=== PATIENT | female | born 1960 | race African-American/Black ===

== ENCOUNTER 2021-02-11 23:37 | Inpatient (IN) | payer BC, OTHER ==
[~2021-02-11] VITALS: Ht 167.6 cm; Wt 85.7 kg
[2021-02-11] MEDS ORDERED: ACETAMINOPHEN 325MG TABLET PO STA (23:53)
[2021-02-12 00:46] LABS: BASOPHILS % 0.4 % (0.0-2.0); HEMATOCRIT. 36.6 % (36.0-48.0); HEMOGLOBIN. 12.3 g/dL (12.0-16.0); LYMPHOCYTES % 11.1 % (20.0-50.0); MEAN CORPUSCULAR HEMOGLOBIN 28.9 pg (28.0-32.0); MEAN CORPUSCULAR VOLUME 85.8 fL (81.0-99.0); MEAN PLATELET VOLUME 7.7 fl (7.4-10.4); MONOCYTES % 8.6 % (2.0-8.0); NEUTROPHILS % 79.9 % (40.0-76.0); PLATELET 283 x1000/uL (130-400); RED BLOOD CELL COUNT 4.27 mill/uL (4.2-5.4); RED CELL DISTRIBUTION WIDTH 13.6 % (11.6-14.6)
[2021-02-12 00:52] LABS: CHLORIDE 103 mEq/L (98-107)
[2021-02-12 00:57] LABS: ETHANOL BLOOD < 10 mg/dL
[2021-02-12] MEDS ORDERED: DOBUTAMINE 500MG PREMIX 250 ML IV STA ×2 (01:06→02:09)
[2021-02-12] MEDS ORDERED: SODIUM CHLORIDE 0.9% 250 ML IV ONE (01:15)
[2021-02-12] MEDS ORDERED: ASPIRIN 325MG EC TABLET PO NR (01:15)
[2021-02-12 01:38] LABS: D-DIMER 0.82 mg/L FEU (<0.50); INR 1.1; PROTHROMBIN TIME 11.8 sec (9.6-11.0)
[2021-02-12] MEDS ORDERED: DEXAMETHASONE 10 MG/ML VIAL IV ONE (02:00)
[2021-02-12] MEDS ORDERED: SODIUM CHLORIDE 0.9% 500 ML IV ONE (02:30)
[2021-02-12] MEDS ORDERED: IOHEXOL-350 100 ML BOTTLE ONE (02:34)
[2021-02-12] MEDS ORDERED: DOBUTAMINE 500MG PREMIX 250 ML IV SCH (08:30)
[2021-02-12] MEDS ORDERED: NOREPINEPHRINE 8MG/250ML PMX 250 ML IV PRN (09:15)
[2021-02-12] MEDS: NOREPINEPHRINE 8MG/250ML PMX 250 ML IV PRN (09:23)
[2021-02-12] MEDS ORDERED: ONDANSETRON HCL 4MG/2ML INJ IV PRN (10:30)
[2021-02-12] MEDS ORDERED: VANCOMYCIN 1 G PREMIX 200 ML IV SCH (10:30)
[2021-02-12 10:56] LABS: BG CARBOXYHEMOGLOBIN 0.5 % (0.5-1.5); BG DEOXYHEMOGLOBIN 6.1 % (0.0-5.0); BG HCO3 ACT 20.6 mmol/L (22.0-26.0); BG OXYGEN SATURATION 93.9 % (92.0-98.5); BG OXYHEMOGLOBIN 93.4 % (94.0-97.0); BG PCO2 40.6 mmHg (35.0-45.0); BG PH 7.324 (7.350-7.450); BG PO2 77.5 mmHg (75.0-100.0); BG SAMPLE SITE RIGHT RADIAL; BG TOTAL HEMOGLOBIN 13.1 g/dL (12.0-18.0); BG VENT MODE NASAL CANNULA
[2021-02-12] MEDS: PANTOPRAZOLE SODIUM 40 MG/VIAL IV SCH (11:42)
[2021-02-12] MEDS: PIPERACILLIN/TAZ 3.375G PREMIX 50 ML IV SCH ×3 (11:42→21:56)
[2021-02-12] MEDS: ASCORBIC ACID 500 MG TABLET PO SCH ×2 (11:42→21:56)
[2021-02-12] MEDS: DEXAMETHASONE 10 MG/ML VIAL IV SCH (11:43)
[2021-02-12] MEDS: ENOXAPARIN 100MG/ML SYR SUBCUT SCH ×2 (11:43→22:58)
[2021-02-12] MEDS: FUROSEMIDE 20MG/2ML VIAL IVP NR ×2 (11:43→14:28)
[2021-02-12] MEDS: ZINC SULFATE 220 MG ( 50 ) CAPSULE PO SCH (11:58)
[2021-02-12] MEDS ORDERED: PHENYLEPHRINE 50 MG in DEXT 5% WATER 245 ML IV PRN (12:30)
[2021-02-12] MEDS ORDERED: DEXTROSE 50% WATER 50ML SYRINGE IV PRN (15:00)
[2021-02-12] MEDS ORDERED: GABAPENTIN 100MG CAPSULE PO PRN (15:30)
[2021-02-12] MEDS: BLOOD SUGAR DIAGNOSTIC STRIP TEST SCH ×2 (17:17→21:50)
[2021-02-12] MEDS: INSULIN LISPRO 100 UNITS/ML SUBCUT SCH ×2 (17:52→21:00)
[2021-02-12 18:09] LABS: BASOPHILS % 0.3 % (0.0-2.0); HEMATOCRIT. 34.9 % (36.0-48.0); HEMOGLOBIN. 11.8 g/dL (12.0-16.0); LYMPHOCYTES % 11.6 % (20.0-50.0); MEAN CORPUSCULAR HEMOGLOBIN 29.2 pg (28.0-32.0); MEAN CORPUSCULAR VOLUME 86.2 fL (81.0-99.0); MONOCYTES % 7.4 % (2.0-8.0); NEUTROPHILS % 80.7 % (40.0-76.0); PLATELET 298 x1000/uL (130-400); RED BLOOD CELL COUNT 4.05 mill/uL (4.2-5.4); RED CELL DISTRIBUTION WIDTH 13.8 % (11.6-14.6)
[2021-02-12 18:12] LABS: CHLORIDE 102 mEq/L (98-107)
[2021-02-12 18:21] LABS: LDL CHOLESTEROL 106 mg/dL (5-100)
[2021-02-12 18:23] LABS: HDL CHOLESTEROL 36 mg/dL (40-59)
[2021-02-12 18:26] LABS: CREATINE KINASE MB FRACTION 10.9 ng/mL (0.5-3.6)
[2021-02-13] MEDS ORDERED: VANCOMYCIN 1 G PREMIX 200 ML IV SCH
[2021-02-13] MEDS: PIPERACILLIN/TAZ 3.375G PREMIX 50 ML IV SCH ×3 (06:37→22:48)
[2021-02-13] MEDS: BLOOD SUGAR DIAGNOSTIC STRIP TEST SCH ×4 (06:38→21:00)
[2021-02-13 07:13] LABS: HEMATOCRIT. 34.4 % (36.0-48.0); HEMOGLOBIN. 11.8 g/dL (12.0-16.0); MEAN CORPUSCULAR HEMOGLOBIN 29.4 pg (28.0-32.0); MEAN CORPUSCULAR VOLUME 85.5 fL (81.0-99.0); MEAN PLATELET VOLUME 7.7 fl (7.4-10.4); PLATELET 395 x1000/uL (130-400); RED BLOOD CELL COUNT 4.02 mill/uL (4.2-5.4); RED CELL DISTRIBUTION WIDTH 13.9 % (11.6-14.6)
[2021-02-13 07:14] LABS: CHLORIDE 103 mEq/L (98-107)
[2021-02-13 07:20] LABS: PHOSPHORUS 3.2 mg/dL (2.5-4.9)
[2021-02-13] MEDS: PANTOPRAZOLE SODIUM 40 MG/VIAL IV SCH (08:08)
[2021-02-13] MEDS: ZINC SULFATE 220 MG ( 50 ) CAPSULE PO SCH (08:10)
[2021-02-13] MEDS: ASPIRIN 81MG EC TABLET PO SCH (08:10)
[2021-02-13] MEDS: DEXAMETHASONE 10 MG/ML VIAL IV SCH (08:10)
[2021-02-13] MEDS: ASCORBIC ACID 500 MG TABLET PO SCH ×2 (08:10→22:48)
[2021-02-13] MEDS: ENOXAPARIN 100MG/ML SYR SUBCUT SCH ×2 (08:11→22:51)
[2021-02-13] MEDS: INSULIN LISPRO 100 UNITS/ML SUBCUT SCH ×4 (08:12→22:50)
[2021-02-13] MEDS ORDERED: MAGNESIUM 1 G PREMIX 100 ML IV SCH (09:00)
[2021-02-13] MEDS: FUROSEMIDE 20MG/2ML VIAL IVP SCH (09:12)
[2021-02-13 10:13] LABS: PLATELET ESTIMATE NORMAL
[2021-02-13] MEDS: VANCOMYCIN 750 MG PREMIX 150 ML IV SCH (19:04)
[2021-02-13] MEDS: ACETAMINOPHEN 325MG TABLET PO PRN (22:49)
[2021-02-14] VITALS (47 sets, daily range): BP systolic 81–138; BP diastolic 42–87
[2021-02-14] MEDS: NOREPINEPHRINE 8MG/250ML PMX 250 ML IV PRN (00:04)
[2021-02-14] MEDS ORDERED: CLOP-31 MT (01:53)
[2021-02-14] MEDS ORDERED: INSU100I28 SQ (01:53)
[2021-02-14] MEDS ORDERED: ALBU2.5V13 NEB (01:53)
[2021-02-14] MEDS ORDERED: FURO-151 MT (01:53)
[2021-02-14] MEDS ORDERED: METF-416 MT (01:53)
[2021-02-14] MEDS: INSULIN LISPRO 100 UNITS/ML SUBCUT SCH ×4 (05:57→20:36)
[2021-02-14] MEDS: PIPERACILLIN/TAZOBACTAM 3.375G in DEXT 5% WATER 50ML IV SCH ×3 (05:58→21:51)
[2021-02-14] MEDS: BLOOD SUGAR DIAGNOSTIC STRIP TEST SCH ×4 (05:58→21:06)
[2021-02-14] MEDS: ZINC SULFATE 220 MG ( 50 ) CAPSULE PO SCH (08:41)
[2021-02-14] MEDS: FUROSEMIDE 20MG/2ML VIAL IVP SCH (08:41)
[2021-02-14] MEDS: ASPIRIN 81MG EC TABLET PO SCH (08:41)
[2021-02-14] MEDS: PANTOPRAZOLE SODIUM 40 MG/VIAL IV SCH (08:41)
[2021-02-14] MEDS: ASCORBIC ACID 500 MG TABLET PO SCH ×2 (08:41→20:33)
[2021-02-14] MEDS: ENOXAPARIN 100MG/ML SYR SUBCUT SCH ×2 (08:42→20:35)
[2021-02-14] MEDS: DEXAMETHASONE 10 MG/ML VIAL IV SCH (08:42)
[2021-02-14] MEDS: VANCOMYCIN 750 MG PREMIX 150 ML IV SCH (12:54)
[2021-02-14] MEDS ORDERED: ALBUTEROL (0.083%) 2.5MG/3ML NEB HHN PRN (15:30)
[2021-02-14] MEDS ORDERED: ALBUTEROL 6.7GM HFA INHALER ORI PRN (16:30)
[2021-02-14] MEDS: ACETAMINOPHEN 325MG TABLET PO PRN (20:33)
[2021-02-14] MEDS ORDERED: *PATIENT'S OWN MEDICATION STORAGE XX SCH (22:00)
[2021-02-14] MEDS ORDERED: MOME13HF INH (22:34)
[2021-02-15] VITALS: BP 101/58
[2021-02-15 04:00] VITALS: BP 112/62
[2021-02-15] MEDS: VANCOMYCIN 750 MG PREMIX 150 ML IV SCH ×2 (05:05→23:45)
[2021-02-15] MEDS: PIPERACILLIN/TAZOBACTAM 3.375G in DEXT 5% WATER 50ML IV SCH ×3 (05:05→21:48)
[2021-02-15] MEDS: BLOOD SUGAR DIAGNOSTIC STRIP TEST SCH ×4 (07:30→21:56)
[2021-02-15 08:00] VITALS: BP 110/65
[2021-02-15] MEDS: FUROSEMIDE 40MG/4ML VIAL IVP SCH (09:11)
[2021-02-15] MEDS: ZINC SULFATE 220 MG ( 50 ) CAPSULE PO SCH (09:11)
[2021-02-15] MEDS: PANTOPRAZOLE SODIUM 40 MG/VIAL IV SCH (09:11)
[2021-02-15] MEDS: DEXAMETHASONE 10 MG/ML VIAL IV SCH (09:11)
[2021-02-15] MEDS: ASCORBIC ACID 500 MG TABLET PO SCH ×2 (09:12→21:48)
[2021-02-15] MEDS: ASPIRIN 81MG EC TABLET PO SCH (09:12)
[2021-02-15] MEDS: ENOXAPARIN 100MG/ML SYR SUBCUT SCH ×2 (09:12→21:56)
[2021-02-15] MEDS: INSULIN LISPRO 100 UNITS/ML SUBCUT SCH ×4 (09:13→21:58)
[2021-02-15] MEDS: CARVEDILOL 6.25 MG TABLET PO SCH ×2 (13:30→21:00)
[2021-02-15 20:00] VITALS: BP 106/69
[2021-02-16] VITALS: BP 111/65
[2021-02-16 04:00] VITALS: BP 104/66
[2021-02-16] MEDS: PIPERACILLIN/TAZOBACTAM 3.375G in DEXT 5% WATER 50ML IV SCH ×3 (05:54→21:07)
[2021-02-16] MEDS: BLOOD SUGAR DIAGNOSTIC STRIP TEST SCH ×4 (06:03→21:10)
[2021-02-16 08:00] VITALS: BP 114/68
[2021-02-16] MEDS ORDERED: MED4 MT (09:51)
[2021-02-16] MEDS ORDERED: COR6 PO (09:51)
[2021-02-16] MEDS: ASPIRIN 81MG EC TABLET PO SCH (09:58)
[2021-02-16] MEDS: FAMOTIDINE 20MG TABLET PO SCH ×2 (09:58→21:08)
[2021-02-16] MEDS: FUROSEMIDE 40MG/4ML VIAL IVP SCH (09:58)
[2021-02-16] MEDS: ZINC SULFATE 220 MG ( 50 ) CAPSULE PO SCH (09:58)
[2021-02-16] MEDS: ENOXAPARIN 100MG/ML SYR SUBCUT SCH ×2 (09:59→21:08)
[2021-02-16] MEDS: CARVEDILOL 6.25 MG TABLET PO SCH ×2 (09:59→20:45)
[2021-02-16] MEDS: DEXAMETHASONE 10 MG/ML VIAL IV SCH (09:59)
[2021-02-16] MEDS: ASCORBIC ACID 500 MG TABLET PO SCH ×2 (09:59→21:08)
[2021-02-16] MEDS: INSULIN LISPRO 100 UNITS/ML SUBCUT SCH ×4 (10:16→21:22)
[2021-02-16] MEDS: ACETAMINOPHEN 325MG TABLET PO PRN (10:47)
[2021-02-16 12:00] VITALS: BP 94/57
[2021-02-16 16:00] VITALS: BP 104/57
[2021-02-16 16:29] LABS: HEMATOCRIT. 39.7 % (36.0-48.0); HEMOGLOBIN. 13.1 g/dL (12.0-16.0); MEAN CORPUSCULAR HEMOGLOBIN 28.4 pg (28.0-32.0); MEAN CORPUSCULAR VOLUME 85.9 fL (81.0-99.0); MEAN PLATELET VOLUME 8.1 fl (7.4-10.4); PLATELET 510 x1000/uL (130-400); RED BLOOD CELL COUNT 4.62 mill/uL (4.2-5.4); RED CELL DISTRIBUTION WIDTH 13.4 % (11.6-14.6)
[2021-02-16 16:35] LABS: CHLORIDE 99 mEq/L (98-107)
[2021-02-16 16:58] LABS: PLATELET ESTIMATE INCREASED
[2021-02-16 20:00] VITALS: BP 97/61
[2021-02-17] VITALS: BP 92/53
[2021-02-17] MEDS ORDERED: SODIUM CHLORIDE 0.9% 1,000 ML IV SCH
[2021-02-17 04:00] VITALS: BP 115/70
[2021-02-17] MEDS: PIPERACILLIN/TAZOBACTAM 3.375G in DEXT 5% WATER 50ML IV SCH (06:06)
[2021-02-17 08:00] VITALS: BP 106/58
== END 2021-02-17 09:05 | disposition left against medical advice (07) | DRG 871 ==
LOC: ER 23:37 → MICUSO 02-12 02:01 → 7WST 02-14 15:55
PROVIDERS: ADMIT Internal Medicine; ATTEND Internal Medicine
PROC: B54NZZA Ultrasonography of Left Upper Extremity Veins, Guidance (ICD-10-PCS; 2021-02-12)
PROC: 05HY33Z Insertion of Infusion Device into Upper Vein, Percutaneous Approach (ICD-10-PCS; 2021-02-12)
PROC: XW03396 Introduction of Ceftolozane/Tazobactam Anti-infective into Peripheral Vein, Percutaneous Approach, New Technology Group 6 (ICD-10-PCS; principal; 2021-02-13)
DX: A41.9 Sepsis, unspecified organism (principal); U07.1 COVID-19; I21.A1 Myocardial infarction type 2; J12.82 Pneumonia due to coronavirus disease 2019; J96.01 Acute respiratory failure with hypoxia; R65.21 Severe sepsis with septic shock; R57.0 Cardiogenic shock; I42.0 Dilated cardiomyopathy; I50.22 Chronic systolic (congestive) heart failure; I69.354 Hemiplegia and hemiparesis following cerebral infarction affecting left non-dominant side; K80.20 Calculus of gallbladder without cholecystitis without obstruction; E11.42 Type 2 diabetes mellitus with diabetic polyneuropathy; E78.5 Hyperlipidemia, unspecified; I11.0 Hypertensive heart disease with heart failure; I45.10 Unspecified right bundle-branch block; J45.909 Unspecified asthma, uncomplicated; Z87.891 Personal history of nicotine dependence
CPT/HCPCS: 36415; 36600; 71045; 71275; 74174; 76604; 76705; 76937; 80048; 80053; 80061; 80202; 80320; 82375; 82550; 82553; 82728; 82805; 82962; 83036; 83605; 83615; 83735; 83880; 84100; 84145; 84484; 85025; 85379; 86140; 87426; 87804; 93005; 93970; 99285; C1725; C9113; J1100; J1250; J1650; J1815; J1940; J2370; J2543; J3370; J3475; J3490; J7040; J7050; J7060; Q9967; G0480